=== PATIENT | male | born 1970 | race Caucasian/White ===

== ENCOUNTER 2019-09-26 09:36 | Outpatient (CLI) | payer SELFPAY ==
[2019-09-26 10:51] LABS: Basophils # 0.1 10^3/uL (0.0-0.1); Basophils % 1.3 %; Eosinophils # 0.3 10^3/uL (0.0-0.8); Eosinophils % 4.1 %; Hematocrit 47.9 % (42.0-52.0); Hemoglobin 15.5 g/dL (11.7-16.6); Lymphocytes # 2.8 10^3/uL (0.8-4.8); Lymphocytes % 35.2 %; Mean Corpuscular HGB Conc 32.4 g/dL (30.0-36.0); Mean Corpuscular Hemoglobin 28.4 pg (28.0-34.0); Mean Corpuscular Volume 87.9 fL (80-94); Monocytes # 0.7 10^3/uL (0.2-0.9); Monocytes % 9.1 %; Neutrophils # 3.9 10^3/uL (1.8-7.7); Neutrophils % 49.3 %; Nucleated Red Blood Cells % 0 %; Platelet Count 313 10^3/cmm (130-400); Red Blood Count 5.45 10^6/uL (4.1-5.3); Red Cell Distribution Width 13.2 % (12.1-15.1); White Blood Count 7.9 10^3/uL (4.0-10.0)
[2019-09-26 11:18] LABS: Calcium 9.1 mg/dL (8.5-10.5); Parathyroid Hormone 36.6 pg/mL (15-65)
[2019-09-26 11:29] LABS: 25 Hydroxy Vitamin D 26 ng/mL (30-100); Alanine Aminotransferase 34 U/L (0-41); Albumin Level 4.2 g/dL (3.5-5.2); Alkaline Phosphatase 92 IU/L (40-130); Anion Gap 15.3 (5-19); Aspartate Amino Transferase 22 U/L (0-40); Blood Urea Nitrogen 19 mg/dL (6-20); Calcium 9.5 mg/dL (8.5-10.5); Carbon Dioxide 24 mmol/L (22-29); Chloride 103 mmol/L (98-107); Globulin 3.5 g/dL (1.3-4.6); Glomerular Filtration Rate 79.8 mL/min (90-130); Glucose 98 mg/dL (65-115); Osmolality Calculated 282 mOsm/kg (285-295); Potassium 4.3 mmol/L (3.5-5.1); Sodium 138 mmol/L (136-145); Total Bilirubin 0.3 mg/dL (0.15-1.2); Total Protein 7.7 g/dL (6.6-8.7)
[2019-09-27 11:32] LABS: Angiotensin Converting Enzyme 80 U/L (9-67)
[2019-09-28 15:16] LABS: Quantiferon Mitogen 7.34 IU/mL; Quantiferon Nil 0.02 IU/mL; Quantiferon TB Gold NEGATIVE (NEGATIVE)
[2019-10-02 19:10] LABS: Vit D 1,25 (Oh)2, Total 36 pg/mL (18-72); Vit D2 1,25 (Oh)2 <8 pg/mL; Vit D3 1,25 (Oh)2 36 pg/mL
== END 2019-09-26 09:37 | disposition home or self-care (01) ==
LOC: LAB 09:39
PROVIDERS: PCP Nurse Practitioner; Visit Provider Internal Medicine Critical Care Medicine
DX: R91.1 Solitary pulmonary nodule (principal); D86.9 Sarcoidosis, unspecified; I27.20 Pulmonary hypertension, unspecified
CPT/HCPCS: 36415; 80053; 82164; 82306; 82310; 82652; 83970; 85025; 86480; 86698; 87385

== ENCOUNTER 2019-09-26 10:22 | Outpatient (CLI) | payer SELFPAY ==
--- NOTE | 2019-09-26 09:45 | CT_ITS ---
WS: [id number] CT CHEST WITHOUT INTRAVENOUS CONTRAST HISTORY: Bilateral pulmonary nodules TECHNIQUE: Contiguous 5 mm axial imaging performed on the thorax. Coronal and sagittal reformats are submitted. All CT scans at [facility] use at least one of these dose optimization techniq ues: automated exposure control; mA and/or kV adjustment per patient size (includes targeted exams wh ere dose is matched to clinical indication); or iterative reconstruction. CONTRAST: None DLP: 905.88 mGycm COMPARISON: 09/11/2019 Lungs and central airway: Numerous, noncalcified and bilateral pulmonary nodules. These nodules range in size from 3 mm to 7 mm. Largest nodules are the lung bases. These nodules involve all lobes. Comp ared to the lung bases on the CTA abdomen from 09/11/2019 there is been a slight decrease in size. Ove rall the nodules are smaller in size of the lung bases with less adjacent inflammatory type changes. Pleura: Normal. No pleural effusion. Heart and pericardium: Normal size heart. No pericardial effusion. Mediastinum and kamran: There are numerous small mediastinal and hilar lymph nodes. Lymph nodes measure up to 10 mm in diameter. Vessels: Normal size aortic and pulmonary artery. No coronary artery calcifications. Chest wall and lower neck: No soft tissue masses. Upper abdomen: Visualized liver is normal. No adrenal mass. Nonobstructing 3 mm calcification upper p ole LEFT kidney. Osseous structures: No destructive process. CT/CT chest wo con [id number] IMPRESSION: 1. Multilobar, subcentimeter and noncalcified pulmonary nodules. Nodules have slightly decreased in size and there is less adjacent inflammatory reaction as compared to 09/11/2019. These may be be postinflammatory or infectious nodules o r related to fungal or granulomatous disease. Neoplasm is still not excluded bu t is thought to be less likely due to the decrease in size. Largest nodules hav e decreased 2-3 mm in diameter. 2. Indeterminate mediastinal and hilar lymph nodes. Lymphadenopathy could be r eactive or due to low-grade malignancy. 3. Recommend continued close follow-up. Repeat chest CT in 3 months and/or fol low-up PET/CT imaging at this time.
== END 2019-09-26 10:23 | disposition home or self-care (01) ==
LOC: RADWPI 10:25
PROVIDERS: PCP Nurse Practitioner; Visit Provider Internal Medicine Critical Care Medicine
DX: R91.8 Other nonspecific abnormal finding of lung field (principal); R59.9 Enlarged lymph nodes, unspecified
CPT/HCPCS: 71250

== ENCOUNTER 2019-10-02 10:15 | Outpatient (CLI) | payer SELFPAY ==
[2019-10-02 11:34] LABS: Total Volume Urine 2825 ml
[2019-10-02 12:00] LABS: Calcium 24 Hour Urine 288 mg/24hr (100-300); Urine Calcium Result 10.2 mg/dL
[2019-10-05 23:40] LABS: Aspergillus AG,EIA,Serum NOT DETECTED; Aspergillus Galactomannan Inde <0.50
[2019-10-08 07:48] LABS: Histoplasma Antigen (Quant) NONE DETECTED; Histoplasma Antigen Interpreta NEGATIVE; Histoplasma Antigen Specimen RANDOM URINE
[2019-10-08 07:48] LABS: Histoplasma Antigen (Quant) NONE DETECTED; Histoplasma Antigen Interpreta NEGATIVE; Histoplasma Antigen Specimen SERUM
== END 2019-10-02 10:16 | disposition home or self-care (01) ==
LOC: LAB 10:17
PROVIDERS: PCP Nurse Practitioner; Visit Provider Internal Medicine Critical Care Medicine
DX: R91.1 Solitary pulmonary nodule (principal)
CPT/HCPCS: 82340; 87305; 87385

== ENCOUNTER 2019-10-04 12:06 | Day surgery (SDC) | payer SELFPAY ==
[2019-10-03 12:48] VITALS: BMI 26.6
--- NOTE | 2019-10-04 | SCC_ITS ---
Procedure: Name of the procedure: Bronchoscopy with inspection of the airway, bronchoalveolar lavage, transbronchial biopsies, endobronchial ultrasound-guided transbronchial needle aspiration of lymph nodes and control of bleeding. 1.8 seconds of fluoroscopic guidance, for a cumulative dose of 21.27 mGy, was provided to Dr. Sawyer by the radiology department. C-arm images of the chest were saved for the patient's permanent record. MTDD
--- NOTE | 2019-10-04 09:45 | SC_ITS ---
WS: [id number] Single view C-arm fluoroscopy of the right lower thorax and right upper abdomen for bronchoscopy, Clinical Data: bronch bx Comparison: None. Fluoroscopic dose time: 1.8 seconds Findings: No abnormalities. SC/C-arm FL for Bronchoscopy Impression: C-arm fluoroscopy of the right lower chest for bronchoscopy.
[2019-10-04 12:24] VITALS: BP 133/88; PULSE 76; RESP 18; TEMP 36.6; O2SAT 98
--- NOTE | 2019-10-04 12:37 | ANES.PREANE2 ---
Pre-Anesthetic Assessment Pre-Anesthetic Assessment: Height/Weight: Height 1.75 m Weight 81.647 kg Temp Pulse Resp BP Pulse Ox 97.9 F 76 18 133/88 98 10/04/19 12:24 10/04/19 12:24 10/04/19 12:24 10/04/19 12:24 10/04/19 12:24 Preop Diagnosis: Lung nodules Proposed Procedure: Operation Date: 10/04/19 13:30 Proposed Procedures p Ebus(Not Applicable) - Butch Sawyer MD Familial anesthetic complications: None Was Beta Los taken within 24 hours: N/A Last intake: Intake Last Liquid Date 10/04/19 Last Liquid Time 09:00 Last Solid Date 10/03/19 Last Solid Time 23:59 Social: Social History: Alcohol and Tobacco Exam: Pre-Anes Outpt Exam: alert, oriented x 3, clear to auscultation bilaterally and regular rate & rhythm Airway: Cervical ROM: WNL MP: 2 Additional comments: upper plates Pulmonary: Pulmonary: SOB Comments: lung nodule CV/HEM: CV/HEM: None reported : Comments: kidney stones Hepatic: Hepatic: None reported GI: GI: None reported Metabolic: Metabolic: None reported Musc/skel: Musc/skel: None reported Neuropsych: Neuropsych: None reported Anesthetic Plan: ASA status: 2 Anesthesia: General Risk of > 500 ml blood loss (7ml/kg in children): No PFSH Anesthesia PFSH: Medical History Kidney stone Lung nodule Family History Father , Age 65 Cancer Lung Grandfather Cancer Social History Smoking and tobacco status: current every day smoker cigarettes Packs smoked per day: 1 Years cigarettes smoked: 35 Quit status (tobacco): considering quitting Second hand smoke exposure: Yes Smoking risk assessment/counseling performed?: Yes Alcohol intake: current Alcohol intake frequency: few times a week Alcohol type: beer Lives independently: Yes Household members: spouse Marital status: Current occupational status: employed History of recent travel: Yes ([place] in July) Details: Tested for COVID-19 which was negative Out of state: Yes Current gender identity: Male Data Anesthesia Cardiac Studies: No Data to Display
[2019-10-04] MEDS: sodium chloride 0.9% 1,000 ML 30 ML IV (12:44)
--- NOTE | 2019-10-04 15:28 | W.PM.OPSUD ---
Surgery/Procedure H&P Update DATE OF PROCEDURE: October 04, 2019 DATE H&P PERFORMED: 09/18/19 H&P UPDATE INFORMATION: I have reviewed H&P completed within last 30 days, I have examined patient prior to procedure and No changes to prior documentation PREOP DIAGNOSIS: Lung nodules PLANNED PROCEDURE: Operation Date: 10/04/19 13:30 Proposed Procedures p Ebus(Not Applicable) - Butch Sawyer MD
[2019-10-04] MEDS: lidocaine 2% viscous 15 mL UDC TOPICAL (15:45)
--- NOTE | 2019-10-04 16:58 | XRR_ITS ---
PROCEDURE INFORMATION: Exam: XR Chest, 1 View Exam date and time: 10/04/2019 5:32 PM Age: 49 years old Clinical indication: Device placement; Other: Post bronch; Additional info: Post bronchoscopy TECHNIQUE: Imaging protocol: XR of the chest Views: 1 view. COMPARISON: CT chest con [id number] 09/26/2019 10:36 AM FINDINGS: Lungs: Low lung volumes. Interstitial stranding in the lower lungs and there is minor interstitial opacity of the left upper lobe laterally. Rather diffuse small accentuated nodular pattern of interstitial change. Pleural space: Unremarkable. No pleural effusion. No pneumothorax. Heart/Mediastinum: Normal heart size. Bones/joints: Unremarkable. XR/XR chest 1V portable [id number] IMPRESSION: 1. Diffuse bilateral nodular interstitial prominence or numerous nodules. 2. Minor left upper lobe and bilateral lower lung interstitial stranding opacities which could reflect partial atelectasis or atypical pneumonia.
--- NOTE | 2019-10-04 16:59 | PM.OP ---
Operative Report Date of procedure: October 04, 2019 Pre-op Diagnosis: Lung nodules and mediastinal and hilar lymphadenopathy Post-op diagnosis: same Brief History: 49-year-old gentleman with bilateral subcentimeter pulmonary nodule and hilar mediastinal lymphadenopathy coming for bronchoscopy. Procedure: Name of the procedure: Bronchoscopy with inspection of the airway, bronchoalveolar lavage, transbronchial biopsies, endobronchial ultrasound-guided transbronchial needle aspiration of lymph nodes and control of bleeding. Indication: Pulmonary nodule and hilar and mediastinal lymphadenopathy. Anesthesia: General anesthesia. Local anesthesia: The griselda in the right and left mainstem bronchi were anesthetized with 1% lidocaine, 3 mL. Description of the procedure: The procedure was explained to the patient and the consent was obtained. The patient was brought to the OR. The patient underwent endotracheal intubation for general anesthesia. Following induction of general anesthesia, the bronchoscope was advanced through the ET tube. The lower trachea appeared to be normal. The griselda was sharp. The griselda, the right and left mainstem bronchi are anesthetized with 1% lidocaine. In a systematic manner bilateral bronchial tree was then examined. The bronchoscope was advanced into the left mainstem bronchus. There was no significant erythema,mucus or areas of cobblestoning. The left upper lobe, lingula and left lower lobe bronchi were examined up to the third subsegmental level and no abnormalities were identified. There is no endobronchial lesion, active bleeding or mucous plug. The bronchoscope was then introduced into the right mainstem bronchus. The right upper lobe, right middle lobe and right lower lobe bronchi were examined up to the third subsegmental level and no abnormalities were identified. Bronchoalveolar lavage was performed from the medial segment of the right middle lobe. 120 mL of saline was instilled, fluid return was 20 mL. The fluid was cloudy. The endobronchial ultrasound was introduced through the ET tube. Mediastinal and hilar lymphadenopathy was identified with the ultrasound. Transbronchial needle aspiration was performed from 7 11 R lymph nodes. The bronchoscope was reintroduced. Transbronchial biopsies were performed from the right middle lobe. 4 samples are obtained. Samples: 1. Bronchoalveolar lavage specimen was sent for cell count and differential, CD4 CD8 ratio, Gram stain and culture, fungal stain and culture, AFB stain and culture. 2. The transbronchial biopsies are sent for histopathology. 3. The transbronchial needle aspiration of the aforementioned lymph node groups were sent for cytology. Complications: There was no immediate complications. The patient was extubated and brought to the PACU in stable condition. Chest x-ray: No pneumothorax. Follow-up: 1. Please follow-up with me in 2 weeks time.
[2019-10-04 17:11] VITALS: BP 109/49; PULSE 77; RESP 18; TEMP 36.4; O2SAT 98
--- NOTE | 2019-10-04 17:12 | SUR.PHASEI ---
1711 PATIENT TO PACU AT THIS TIME FROM OR. RR EVEN AND UNLABORED. ORAL AIRWAY IN PLACE. PLACED ON SIMPLE MASK AT 8L, SPO2 94%.
[2019-10-04 17:20] VITALS: BP 102/53; PULSE 73; RESP 12; O2SAT 96
--- NOTE | 2019-10-04 17:22 | SUR.PHASEI ---
1722 ORAL AIRWAY REMOVED AT THIS TIME. SPO2 95% ON SIMPLE MASK. COUGHING NOTED.
[2019-10-04 17:25] VITALS: BP 100/57; PULSE 87; RESP 22; O2SAT 94
[2019-10-04 17:30] VITALS: BP 108/57; PULSE 82; RESP 13; O2SAT 93
[2019-10-04 17:32] VITALS: BP 108/57; BP 97/55; PULSE 76; PULSE 80; RESP 18; RESP 20; TEMP 36.7; O2SAT 95
--- NOTE | 2019-10-04 17:43 | SUR.PHASEI ---
1732 PATIENT TO OPS AT THIS TIME. SPO2 96%. RR EVEN AND UNLABORED.
[2019-10-07 06:37] LABS: Total Cells Counted Bronch 200
[2019-10-07 06:39] LABS: PATH Referral Yes
[2019-10-07 06:42] LABS: Bronch Source Right and Left Lobes
[2019-10-07 07:41] LABS: Apprearance, Bronch Wash Hazy (CLEAR)
[2019-10-07 07:42] LABS: Color, Bronc Wash Slight Pink
[2019-10-23 11:27] LABS: Leuk/Lymp. Number of Markers 0; Leukemia/Lymph. Clinical Infor NOT GIVEN; Leukemia/Lymph. Spec Type TISSUE
== END 2019-10-04 18:04 | disposition home or self-care (01) ==
PROVIDERS: PCP Nurse Practitioner; Visit Provider Internal Medicine Critical Care Medicine
PROC: BB4BZZZ Ultrasonography of Pleura (ICD-10-PCS; principal; 2019-10-04 13:30)
DX: R91.1 Solitary pulmonary nodule (principal); R59.1 Generalized enlarged lymph nodes; F17.210 Nicotine dependence, cigarettes, uncomplicated
CPT/HCPCS: 12345; 31625; 31627; 71045; 76000; 80500; 87015; 87070; 87116; 87205; 87206; 87801; 88112; 88173; 88184; 88185; 88305; 89050; J1100; J2001; J2704; J2710; J3010; J3490; J7030

== ENCOUNTER 2019-11-20 07:25 | Outpatient (CLI) | payer SELFPAY ==
--- NOTE | 2019-11-20 09:41 | PFTS_ITS ---
Date of Study:11/20/19 Date of Dictation: MECHANICS: Forced vital capacity (FVC) is normal. Forced expiratory volume in one second (FEV1) is normal. FEV1/FVC is . FLOW VOLUME LOOP: Normal. LUNG VOLUMES: Total lung capacity (TLC) is normal. Residual volume (RV) is normal. DIFFUSING CAPACITY FOR CARBON MONOXIDE: Normal. INTERPRETATION: The pulmonary function tests are normal. Lung volumes are normal. Gas exchange (DLCO) is normal. MTDD
== END 2019-11-20 07:26 | disposition home or self-care (01) ==
LOC: RT 07:26
PROVIDERS: PCP Nurse Practitioner; Visit Provider Internal Medicine Critical Care Medicine
DX: B39.2 Pulmonary histoplasmosis capsulati, unspecified (principal)
CPT/HCPCS: 94010; 94726; 94729